=== PATIENT | male | born 1985 | race Two or more races ===

== ENCOUNTER 2019-12-16 14:23 | Emergency (ER) | payer SELFPAY ==
[~2019-12-16] VITALS: Ht 180.3 cm; Wt 78.9 kg
[2019-12-16] MEDS ORDERED: HYDROcodone-ACET 5/325MG TAB PO ONE (18:45)
[2019-12-16 20:06] VITALS: BP 121/73
== END 2019-12-16 20:11 | disposition home or self-care (01) ==
LOC: ER 14:29
DX: N50.89 Other specified disorders of the male genital organs (principal); N50.811 Right testicular pain; F12.10 Cannabis abuse, uncomplicated
CPT/HCPCS: 76870

== ENCOUNTER 2020-05-03 10:45 | Inpatient (IN) | payer MEDICAID ==
[~2020-05-03] VITALS: Ht 175.3 cm; Wt 66.1 kg
[2020-05-03] MEDS ORDERED: SODIUM CHLORIDE 0.9% 500 ML IV ONE (11:09)
[2020-05-03 11:55] LABS: White Blood Cell 4.4 10^3/uL (4.4-10.8)
[2020-05-03 11:58] LABS: Hematocrit 21.4 % (41.0-53.0); Hemoglobin 7.3 g/dL (13.5-17.5); Mean Corpuscular Hemoglobin 28.2 pg (28.0-32.0); Mean Corpuscular Hgb Conc. 33.9 g/dL (32.0-36.0); Mean Corpuscular Volume 83.1 fL (80.0-100.0); Platelet Count (auto) 481 10^3/uL (140-450); Red Blood Cells 2.58 10^6/uL (4.5-5.90)
[2020-05-03 12:11] LABS: INR 1.05 (0.9-1.15); Partial Thromboplastin Time 23.4 sec (23.64-32.05)
[2020-05-03 12:18] LABS: Albumin 3.4 g/dL (3.4-5.0); Calcium 8.9 mg/dL (8.5-10.1); Potassium 3.1 mmol/L (3.5-5.1)
[2020-05-03 12:22] LABS: BUN/Creatinine Ratio 17.9; Bilirubin, Total 0.5 mg/dL (0.2-1.0)
[2020-05-03 12:53] LABS: Red Cell Distribution Width 24.7 % (11.8-14.3)
[2020-05-03 12:54] LABS: Band Neutrophils % (manual) 0; Basophils % (manual) 0 (0.0-2.0); Blast Cells 0; Eosinophils % (manual) 0 (0-7); Metamyelocytes % 0; Myelocytes % 0; Promyelocytes % 0; Reactive Lymphocytes 0
[2020-05-03] MEDS ORDERED: POTASSIUM CHL 20MEQ/100ML 100 ML IV ONE (13:00)
[2020-05-03 13:15] LABS: Lymphocytes % (manual) 19 (10.0-50.0); Monocytes % (manual) 5 (0-12)
[2020-05-03] MEDS ORDERED: NITROGLYCERIN 0.4 MG SL TAB SL PRN (15:15)
[2020-05-03] MEDS ORDERED: MORPHINE SULF INJ 2 MG/ML SYRINGE 1ML IV PRN (15:15)
[2020-05-03] MEDS ORDERED: [UNRECOGNIZED DRUG - CODE] IJ (15:57)
[2020-05-03] MEDS ORDERED: HYDR-4833 PO (15:57)
[2020-05-03] MEDS ORDERED: ONDA-143 PO (15:57)
[2020-05-03] MEDS ORDERED: PRO10T PO (15:57)
[2020-05-03] MEDS ORDERED: PROCHLORPERAZINE MALEATE 10 MG TAB PO PRN (16:00)
[2020-05-03 18:35] VITALS: BP 109/74
[2020-05-03 18:50] VITALS: BP 106/68
[2020-05-03 19:20] VITALS: BP 109/69
[2020-05-03 19:45] VITALS: BP 120/74
[2020-05-03 22:00] VITALS: BP 120/74
[2020-05-03 22:33] VITALS: BP 114/66
[2020-05-04] VITALS (8 sets, daily range): BP systolic 113–136; BP diastolic 63–89
[2020-05-04] MEDS: ONDANSETRON ODT 4 MG TAB PO PRN ×2 (04:55→18:21)
[2020-05-04] MEDS: HYDROcodone-ACET 5/325MG TAB PO PRN ×2 (04:59→21:20)
[2020-05-04 05:52] LABS: Hemoglobin 8.7 g/dL (13.5-17.5)
[2020-05-04 05:57] LABS: Hematocrit 26.3 % (41.0-53.0); Mean Corpuscular Hemoglobin 28.4 pg (28.0-32.0); Mean Corpuscular Hgb Conc. 33.2 g/dL (32.0-36.0); Mean Corpuscular Volume 85.7 fL (80.0-100.0); Platelet Count (auto) 432 10^3/uL (140-450); Red Blood Cells 3.07 10^6/uL (4.5-5.90)
[2020-05-04 06:05] LABS: Red Cell Distribution Width 24.2 % (11.8-14.3)
[2020-05-04 06:08] LABS: Calcium 9.1 mg/dL (8.5-10.1); Potassium 3.8 mmol/L (3.5-5.1)
[2020-05-04 06:14] LABS: Albumin 3.6 g/dL (3.4-5.0); BUN/Creatinine Ratio 17.8; Bilirubin, Total 0.5 mg/dL (0.2-1.0); Total Protein 7.2 g/dL (6.4-8.2)
[2020-05-04 06:20] LABS: White Blood Cell 54.7 10^3/uL (4.4-10.8)
[2020-05-04 06:21] LABS: Basophils % (manual) 0 (0.0-2.0); Blast Cells 0; Eosinophils % (manual) 0 (0-7); Metamyelocytes % 0; Monocytes % (manual) 0 (0-12); Myelocytes % 0; Promyelocytes % 0; Reactive Lymphocytes 0
[2020-05-04 06:44] LABS: Band Neutrophils % (manual) 11; Lymphocytes % (manual) 2 (10.0-50.0)
[2020-05-04] MEDS ORDERED: FILGRASTIM SNDZ SC SCH ×2 (10:00→17:30)
[2020-05-04 13:38] LABS: Mean Corpuscular Hgb Conc. 33.6 g/dL (32.0-36.0)
[2020-05-04 13:40] LABS: Mean Corpuscular Hemoglobin 28.8 pg (28.0-32.0); Mean Corpuscular Volume 85.7 fL (80.0-100.0); Platelet Count (auto) 397 10^3/uL (140-450)
[2020-05-04 13:43] LABS: Red Cell Distribution Width 24.4 % (11.8-14.3)
[2020-05-04 13:47] LABS: White Blood Cell 38.8 10^3/uL (4.4-10.8)
[2020-05-04 13:49] LABS: Band Neutrophils % (manual) 0; Basophils % (manual) 0 (0.0-2.0); Blast Cells 0; Eosinophils % (manual) 0 (0-7); Metamyelocytes % 0; Monocytes % (manual) 0 (0-12); Myelocytes % 0; Promyelocytes % 0; Reactive Lymphocytes 0
[2020-05-04 13:59] LABS: Lymphocytes % (manual) 1 (10.0-50.0)
[2020-05-05 05:00] VITALS: BP 105/68
[2020-05-05 05:48] LABS: Hematocrit 26.7 % (41.0-53.0); Hemoglobin 8.8 g/dL (13.5-17.5); Mean Corpuscular Hemoglobin 28.1 pg (28.0-32.0); Mean Corpuscular Hgb Conc. 32.8 g/dL (32.0-36.0); Mean Corpuscular Volume 85.6 fL (80.0-100.0); Platelet Count (auto) 402 10^3/uL (140-450); Red Blood Cells 3.11 10^6/uL (4.5-5.90)
[2020-05-05 05:53] LABS: Red Cell Distribution Width 24.5 % (11.8-14.3)
[2020-05-05 05:55] LABS: Basophils % (manual) 0 (0.0-2.0); Blast Cells 0; Eosinophils % (manual) 0 (0-7); Metamyelocytes % 0; Myelocytes % 0; Promyelocytes % 0; Reactive Lymphocytes 0
[2020-05-05 06:15] LABS: Albumin 3.6 g/dL (3.4-5.0); Calcium 8.6 mg/dL (8.5-10.1); Potassium 3.8 mmol/L (3.5-5.1)
[2020-05-05 06:17] LABS: BUN/Creatinine Ratio 16.8
[2020-05-05 06:20] LABS: Bilirubin, Total 0.5 mg/dL (0.2-1.0); Total Protein 7.6 g/dL (6.4-8.2)
[2020-05-05 07:13] LABS: Band Neutrophils % (manual) 3; Lymphocytes % (manual) 4 (10.0-50.0); Monocytes % (manual) 3 (0-12)
[2020-05-05] MEDS: ONDANSETRON ODT 4 MG TAB PO PRN (08:20)
[2020-05-05 09:00] VITALS: BP 122/71
[2020-05-05 13:00] VITALS: BP 117/66
[2020-05-05] MEDS: HYDROcodone-ACET 5/325MG TAB PO PRN (16:16)
[2020-05-05 17:00] VITALS: BP 134/83
[2020-05-05 17:23] VITALS: BP 117/68
[2020-05-05] MEDS ORDERED: FILGRASTIM SNDZ SC SCH (18:00)
== END 2020-05-05 18:00 | disposition home or self-care (01) | DRG 422 ==
LOC: ER 10:45 → TELE 10:46 → TELE-WESTW 19:38
PROVIDERS: ADMIT Internal Medicine; ATTEND Internal Medicine
PROC: 30233N1 Transfusion of Nonautologous Red Blood Cells into Peripheral Vein, Percutaneous Approach (ICD-10-PCS; principal; 2020-05-03)
DX: E86.0 Dehydration (principal); C62.90 Malignant neoplasm of unspecified testis, unspecified whether descended or undescended; I95.9 Hypotension, unspecified; D72.829 Elevated white blood cell count, unspecified; E87.6 Hypokalemia; F12.90 Cannabis use, unspecified, uncomplicated; R55 Syncope and collapse; F17.200 Nicotine dependence, unspecified, uncomplicated; Z80.9 Family history of malignant neoplasm, unspecified; M54.9 Dorsalgia, unspecified
CPT/HCPCS: 36415; 36430; 70551; 80053; 82962; 85007; 85027; 85610; 85730; 86850; 86900; 86901; 86920; 93005; 93306; 96361; 96365; 96366; G0378; J3480; Q0162

== ENCOUNTER 2021-09-25 09:43 | Emergency (ER) | payer MEDICAID ==
[~2021-09-25] VITALS: Ht 180.3 cm; Wt 93.0 kg
[~2021-09-25 09:43] MED LIST: HYDR-4833 PO; ONDA-143 PO; PROC10TA2 PO; [UNRECOGNIZED DRUG - CODE] IJ
[2021-09-25 09:48] VITALS: BP 142/91
== END 2021-09-25 14:32 | disposition left against medical advice (07) ==
LOC: ER 09:43
DX: K29.70 Gastritis, unspecified, without bleeding (principal); M79.10 Myalgia, unspecified site; Z79.899 Other long term (current) drug therapy
CPT/HCPCS: 71045; 74176; 93005